=== PATIENT | male | born 1990 | race Two or more races ===

== ENCOUNTER 2020-09-02 07:18 | Emergency (ER) | payer MEDICAID, OTHER ==
[~2020-09-02] VITALS: Ht 162.6 cm; Wt 70.3 kg
[2020-09-02 07:22] VITALS: BP 156/100
[2020-09-02] MEDS ORDERED: IBUPROFEN 800 MG TAB PO ONE (08:00)
== END 2020-09-02 08:33 | disposition home or self-care (01) ==
LOC: ER 07:18
DX: S50.11XA Contusion of right forearm, initial encounter (principal); F17.210 Nicotine dependence, cigarettes, uncomplicated; Y04.8XXA Assault by other bodily force, initial encounter; Y93.89 Activity, other specified; Y92.098 Other place in other non-institutional residence as the place of occurrence of the external cause; Y99.8 Other external cause status
CPT/HCPCS: 73090